=== PATIENT | female | born 1960 | race Caucasian/White ===

== ENCOUNTER → 2017-09-30 | Outpatient (CLI) | payer OTHER ==
[~2017-09-30] MED LIST: HYDR-971 PO; IBUP-1060 PO
--- NOTE | 2017-10-01 11:33 | KCIC ---
DATE: 09/30/2017 EXAM: MAMMO [facility] SCREENING BILATERAL HISTORY: Routine screening COMPARISON: 2014 This study was interpreted with the benefit of Computerized Aided Detection (CAD). The breast parenchyma is heterogeneously dense, which could reduce sensitivity of mammography. Breast parenchyma level C. FINDINGS: There is a 9 mm oval-shaped nodule in the inferolateral aspect of the left breast best seen on CC tomogram image #12 and oblique tomogram image #18. Its margins appear slightly lobulated. It is unclear whether it was present on previous mammograms due to dense overlying fibroglandular tissues on the previous 2-D images. No other discrete or enlarging breast nodule is seen. Benign type calcifications are present. No suspicious microcalcifications have developed. \\ IMPRESSION: Small left breast nodule as described above. Sonographic evaluation is suggested. BI-RADS CATEGORY: 0 INCOMPLETE: NEEDS ADDITIONAL IMAGING EVALUATION AND/OR PRIOR MAMMOGRAMS FOR COMPARISON. RECOMMENDED FOLLOW-UP: ADD ADDITIONAL IMAGING PQRS compliance statement: Patient information was entered into a reminder system with a target due date for the next mammogram. Mammography is a sensitive method for finding small breast cancers, but it does not detect them all and is not a substitute for careful clinical examination. A negative mammogram does not negate a clinically suspicious finding and should not result in delay in biopsying a clinically suspicious abnormality. "Our facility is accredited by the [employer] Mammography Program."
== END | disposition home or self-care (01) ==
LOC: KCIC MAMMO 08:39
PROVIDERS: ATTEND Family Medicine
DX: Z12.31 Encounter for screening mammogram for malignant neoplasm of breast (principal); N63.20 Unspecified lump in the left breast, unspecified quadrant
CPT/HCPCS: 77063; G0202; 77067

== ENCOUNTER 2017-10-06 22:46 | Emergency (ER) | payer OTHER ==
[~2017-10-06] VITALS: Ht 167.6 cm; Wt 102.1 kg
[2017-10-06 22:54] VITALS: BP 131/63
--- NOTE | 2017-10-06 23:28 | PHYS DOC ---
Past Medical History Past Medical History: No Pertinent History Past Surgical History: Appendectomy Additional Past Surgical Histo: left ear surgery Alcohol Use: None Drug Use: None Adult General Chief Complaint Chief Complaint: WRIST PAIN HPI HPI Patient is a 57 year old female presents to the emergency department stating that she slipped and fell on some water at home. She states that she fell on an outstretched hand. Patient is right-hand dominant. She has pain at the right radial wrist. No deformity noted. Peripheral pulses 2+ cap refill brisk less than 2 seconds. Patient is able to move all the fingers without difficulty. She does have increased pain and discomfort with moving the wrist. Review of Systems Review of Systems Constitutional: Denies fever or chills [] Eyes: Denies change in visual acuity, redness, or eye pain [] HENT: Denies nasal congestion or sore throat [] Respiratory: Denies cough or shortness of breath [] Cardiovascular: No additional information not addressed in HPI [] GI: Denies abdominal pain, nausea, vomiting, bloody stools or diarrhea [] : Denies dysuria or hematuria [] Musculoskeletal: Denies back pain. Complaint of right wrist pain Integument: Denies rash or skin lesions [] Neurologic: Denies headache, focal weakness or sensory changes [] Endocrine: Denies polyuria or polydipsia [] All other systems were reviewed and found to be within normal limits, except as documented in this note. Current Medications Current Medications Current Medications Medications (Trade) Dose Ordered Sig/Corinne Start Time Stop Time Status Last Admin Dose Admin Acetaminophen/ Hydrocodone Bitart (Lortab 5/325) 2 tab 1X ONCE 10/06/17 23:45 10/06/17 23:46 DC 10/06/17 23:43 2 TAB Allergies Allergies Allergies Coded Allergies Type Severity Reaction Last Updated Verified erythromycin base Adverse Reaction Intermediate dizziness 09/30/17 Yes Physical Exam Physical Exam Constitutional: Well developed, well nourished, no acute distress, non-toxic appearance. [] HENT: Normocephalic, atraumatic, bilateral external ears normal, oropharynx moist, no oral exudates, nose normal. [] Eyes: PERRLA, EOMI, conjunctiva normal, no discharge. [] Neck: Normal range of motion, no tenderness, supple, no stridor. [] Cardiovascular:Heart rate regular rhythm Lungs & Thorax: No respiratory distress noted Skin: Warm, dry, no erythema, no rash. [] Extremities: Right wrist tenderness, no cyanosis, no clubbing, ROM intact, no edema. Peripheral pulses 2+ cap refill brisk less than 2 seconds. Patient is able to move all of her fingers without difficulty. Neurologic: Alert and oriented X 3, normal motor function, normal sensory function, no focal deficits noted. [] Psychologic: Affect normal, judgement normal, mood normal. [] Current Patient Data Vital Signs Vital Signs Date Time Temp Pulse Resp B/P (MAP) Pulse Ox O2 Delivery O2 Flow Rate FiO2 10/06/17 23:43 22 99 Room Air 10/06/17 22:54 98.1 74 98.1 EKG EKG [] Radiology/Procedures Radiology/Procedures [] Course & Med Decision Making Course & Med Decision Making Pertinent Labs and Imaging studies reviewed. (See chart for details) X-rays are positive for a buckle fracture along the right radial area. Patient will be placed in a volar splint with a sling. She'll be provided with hydrocodone here in the emergency department. She'll be discharged with a prescription for hydrocodone for severe pain and discomfort. Recommended ibuprofen [id number] for pain and discomfort and to also help with inflammation. Recommended ice packs on 20 minutes off 20 minutes several times a day. She'll be provided with orthopedic name and number to follow-up with. Recommended following up within the next 5-7 days. Signs and symptoms return back to emergency department has been provided. Recommended elevation as much as possible. All questions and concerns been answered at the patients bedside. Patient agrees with discharge instructions, treatment regimens and follow-up recommendations. Patient was also instructed hydrocodone will cause drowsiness do not take any be alert and oriented. [] Dragon Disclaimer Dragon Disclaimer This electronic medical record was generated, in whole or in part, using a voice recognition dictation system. Departure Departure Impression: Primary Impression: Right wrist fracture Disposition: 01 HOME, SELF-CARE Condition: STABLE Referrals: LOGAN SOSA MD (PCP) FRANCISCO PARDO II, MD Patient Instructions: Arm Sling Use, [id number], Splint Care, [id number], Wrist Fracture, [id number] Additional Instructions: Activity as tolerated. Ibuprofen 800 mg every 8 hours with food stopped taking he developed upset stomach. Hydrocodone for severe pain and discomfort. This medication will cause drowsiness do not take any be alert and oriented. Keep the splint in place do not remove the splint until you're seen by the orthopedic doctor. Keep it clean and dry. Elevation as much as possible. Ice packs on 20 minutes off 20 minutes several times a day. Use the sling whenever your up ambulating to help with keeping it elevated. Follow-up with orthopedic within the next week. Return back to the emergency department for signs and symptoms of become worse. Scripts Hydrocodone/Apap 5-325 (NORCO 5-325 TABLET) 1 Each Tablet 1 TAB PO PRN Q6HRS Y for PAIN, #20 TAB 0 Refills Prov: PRAKASH MULLER APRN 10/06/17 Ibuprofen (IBUPROFEN) 800 Mg Tablet 800 MG PO PRN Q6HRS Y for INFLAMMATION, #30 TAB Prov: PRAKASH MULLER APRN 10/06/17 Splinting Splinting : Location: right arm Hand-Made Type: orthoglass Splint: volar Pre-Proc Neuro Vasc Exam: normal Post-Proc Neuro Vasc Exam: normal Problem Qualifiers Primary Impression: Right wrist fracture Encounter type: initial encounter Fracture type: closed Qualified Codes: S62.101A - Fracture of unspecified carpal bone, right wrist, initial encounter for closed fracture PRAKASH MULLER APRN Oct 06, 2017 23:28 NICHOL TOLBERT MD Oct 07, 2017 07:34
[2017-10-06] MEDS ORDERED: IBUP-1060 PO (23:30)
[2017-10-06] MEDS ORDERED: HYDR-971 PO (23:30)
[2017-10-06] MEDS ORDERED: HYDROcodone/APAP 5/325MG 1 TAB TABLET PO ONE (23:45)
--- NOTE | 2017-10-07 07:15 | RAD ---
Indication: Fall. Time of exam 2301 hours. 3 views of the right wrist were obtained. There is a probable fracture of the distal radius, along the radial side. No displacement or angulation is seen. Distal ulna is intact. Carpal bones and metacarpals are intact. Impression: Findings suggestive of distal radius fracture.
== END 2017-10-06 23:46 | disposition home or self-care (01) ==
LOC: ER 22:46
DX: S62.101A Fracture of unspecified carpal bone, right wrist, initial encounter for closed fracture (principal); Z88.1 Allergy status to other antibiotic agents; W01.0XXA Fall on same level from slipping, tripping and stumbling without subsequent striking against object, initial encounter; Y93.89 Activity, other specified; Y99.8 Other external cause status; Y92.89 Other specified places as the place of occurrence of the external cause
CPT/HCPCS: 29125; 73110; 99284-25

== ENCOUNTER → 2017-10-06 | Outpatient (CLI) | payer OTHER ==
--- NOTE | 2017-10-06 09:21 | RAD ---
Ultrasound of the left breast 10/06/2017 Clinical history: Nodule seen in the left breast on recent screening mammogram. Technique: A real-time ultrasound examination of the left breast from the 3 to 6:00 position was performed. Multiple images were obtained. Findings: Comparison is made to the patient's mammogram dated 09/30/2017. Within the left breast at the 4:00 position a well-defined hypoechoic nodule is seen which measures 8 mm in greatest diameter. This corresponds to the patient's mammographic abnormality. It is felt to most likely represent a fibroadenoma. A follow-up ultrasound of the left breast in 6 months is recommended to document its stability. Impression: 8 mm probable fibroadenoma is seen within the left breast at the 4:00 position. This corresponds to the patient's mammographic abnormality. A repeat ultrasound of the left breast in 6 months is recommended to document its stability. BI-RADS Category 3 probably benign findings. Patient information was entered into the reminder system with a target date for a follow-up ultrasound of the left breast on 04/06/2018.
== END | disposition home or self-care (01) ==
LOC: KCIC US 07:45
PROVIDERS: ATTEND Family Medicine
DX: N63.20 Unspecified lump in the left breast, unspecified quadrant (principal)
CPT/HCPCS: 76641